=== PATIENT | male | born 1955 | race Caucasian/White ===

== ENCOUNTER 2017-06-01 00:07 | Emergency (ER) | payer OTHER ==
[2017-06-01 00:08] VITALS: BMI 25.8
--- NOTE | 2017-06-01 01:01 | ED PDOC ---
Arrival/HPI - General Chief Complaint: Dizziness/Lightheaded Time Seen by Provider: 06/01/17 00:13 Historian: Patient - History of Present Illness Narrative History of Present Illness (Text): 06/01/17 01:02 A 61 year old male, with no significant past medical history, presents to the emergency department complaining of onset dizziness at home, associated with feeling hot all over body,palpitations , shortness of breath. Patient states he noted blood pressure was elevated. Denies any prior history of hypertension. Patient denies any associated chest pain, leg pain, back pain or any other complaints at this time. Symptom Onset: Sudden Symptom Course: Unchanged Activities at Onset: Rest Context: Home Past Medical History - Provider Review Nursing Documentation Reviewed: Yes - Infectious Disease Hx of Infectious Diseases: None - Tetanus Immunization Tetanus Immunization: >10 years Ago - Past Medical History Past Medical History: No Previous - Cardiac Hx Hypertension: Yes - Psychiatric Hx Depression: No Hx Emotional Abuse: No Hx Physical Abuse: No Hx Substance Use: No - Past Surgical History Past Surgical History: Non-Contributing - Surgical History Other/Comment: hernia repair, meniscal repair - Anesthesia Hx Anesthesia: Yes Hx Anesthesia Reactions: No Hx Malignant Hyperthermia: No - Suicidal Assessment Feels Threatened In Home Enviroment: No Family/Social History - Physician Review Nursing Documentation Reviewed: Yes Family/Social History: No Known Family HX Smoking Status: Never Smoked Hx Alcohol Use: No Hx Substance Use: No Allergies/Home Meds Allergies/Adverse Reactions: Allergies No Known Allergies Allergy (Verified 03/09/13 09:30) Home Medications: Home Meds Medication Instructions Recorded Confirmed No Known Home Med 03/09/13 06/01/17 Review of Systems - Physician Review All systems were reviewed & negative as marked: Yes - Review of Systems Respiratory: SOB Cardiovascular: absent: Chest Pain Musculoskeletal: absent: Back Pain, Other (leg pain) Neurological: Dizziness Physical Exam Vital Signs Reviewed: Yes Vital Signs Temp Pulse Resp BP Pulse Ox 06/01/17 03:15 98.0 F 71 18 168/114 H 99 06/01/17 01:58 72 148/84 06/01/17 00:19 98.7 F 81 16 175/105 H 98 06/01/17 00:08 98.7 F 77 18 155/84 H 100 Temperature: Afebrile Blood Pressure: Hypertensive Pulse: Regular Respiratory Rate: Normal Appearance: Positive for: Well-Appearing, Non-Toxic, Comfortable Pain Distress: None Mental Status: Positive for: Alert and Oriented X 3 - Systems Exam Head: Present: Atraumatic, Normocephalic Pupils: Present: PERRL Extroacular Muscles: Present: EOMI Conjunctiva: Present: Normal Mouth: Present: Moist Mucous Membranes Neck: Present: Normal Range of Motion Respiratory/Chest: Present: Clear to Auscultation, Good Air Exchange. No: Respiratory Distress, Accessory Muscle Use Cardiovascular: Present: Regular Rate and Rhythm, Normal S1, S2. No: Murmurs Abdomen: Present: Normal Bowel Sounds. No: Tenderness, Distention, Peritoneal Signs Back: Present: Normal Inspection Upper Extremity: Present: Normal Inspection. No: Cyanosis, Edema Lower Extremity: Present: Normal Inspection, Other (negative Tj's). No: Edema, CALF TENDERNESS Neurological: Present: GCS=15, CN II-XII Intact, Speech Normal Skin: Present: Warm, Dry, Normal Color. No: Rashes Psychiatric: Present: Alert, Oriented x 3, Normal Insight, Normal Concentration Medical Decision Making ED Course and Treatment: 06/01/17 01:00 Impression: A 61 year old male with dizziness, shortness of breath and elevated blood pressure. Plan: -- EKG -- CT head -- chest xray -- labs -- Catapres -- Reassess and disposition Prior Visits: Notes and results from previous visits were reviewed. Patient was last seen in the emergency department on 03/09/13 for evaluation of right hand suture removal. Progress Notes: EKG: Ordered, reviewed, and independently interpreted the EKG. Rate : 73 BPM Rhythm : NSR Interpretation : No acute changes CT Head Without Intravenous Contrast FINDINGS: Brain: Unremarkable. No hemorrhage. No significant white matter disease. No edema. Ventricles: Unremarkable. No ventriculomegaly. Bones/joints: Unremarkable. No acute fracture. Soft tissues: Unremarkable. Sinuses: Moderate to severe patchy sinus disease. Mastoid air cells: Unremarkable. No mastoid effusion. IMPRESSION: 1. Moderate to severe patchy sinus disease. 2. No evidence of an acute intracranial hemorrhage, midline shift or mass effect is identified. Dictated and Authenticated by: Main Correa MD 06/01/2017 1:48 AM Eastern Time ([place] & [place]) 06/01/17 02:35 Chest xray: No acute process, as read by me. 06/01/17 03:43 Patient was strongly advised for admission to the hospital for possible underlying undiagnosed heart disease. Patient leaving emergency department against medical advice. Leaving Against Medical Advice (AMA): The patient is choosing to leave against medical advice. I have personally explained to the patient that choosing to do so may result in permanent bodily harm or . I have discussed at great length that without further evaluation and monitoring there may be unforeseen circumstances and/or deterioration causing permanent bodily harm or as a result of their choice. The patient is alert, oriented, and shows the mental capacity to make clear decisions regarding the patients health care at this time. The patient continues to wish to leave against medical advice. The patient has been advised that they should return to the emergency room immediately if they change their mind at any time, or if their condition begins to change or worsen in any way. - Lab Interpretations Lab Results: 06/01/17 01:00 06/01/17 01:00 Lab Results 06/01/17 01:00: WBC 7.4, RBC 5.31, Hgb 15.9, Hct 47.2, MCV 88.9, MCH 29.9, MCHC 33.7, RDW 13.7, Plt Count 153, MPV 11.2 H 06/01/17 01:00: Sodium 143, Potassium 4.4, Chloride 104, Carbon Dioxide 30, Anion Gap 13, BUN 16, Creatinine 0.9, Est GFR ( Amer) > 60, Est GFR (Non- Af Amer) > 60, Random Glucose 104, Calcium 9.7, Total Bilirubin 0.5, AST 23, ALT 36, Alkaline Phosphatase 89, Lactate Dehydrogenase 385, Total Creatine Kinase 55, Troponin I < 0.01, Total Protein 7.6, Albumin 4.6, Globulin 3.0, Albumin/Globulin Ratio 1.5 06/01/17 01:00: PT 11.6, INR 1.06, APTT 32.6 I have reviewed the lab results: Yes - RAD Interpretation Radiology Orders: 06/01/17 00:51 HEAD W/O CONTRAST [CT] Stat CHEST PORTABLE [RAD] Stat - EKG Interpretation Interpreted by ED Physician: Yes Type: 12 lead EKG - Medication Orders Current Medication Orders: Discontinued Medications Clonidine HCl (Catapres) 0.2 mg PO STAT STA Stop: 06/01/17 00:57 Last Admin: 06/01/17 01:58 Dose: Not Given Non-Admin Reason: BP Parameters Not Met MAR Pulse and Blood Pressure Document 06/01/17 01:58 AB (Rec: 06/01/17 01:[address] [facility] [id number]) Pulse Pulse Rate (60-90 beats/min) 72 Blood Pressure Blood Pressure (100/60-150/90 mm Hg) 148/84 - Scribe Statement The provider has reviewed the documentation as recorded by the Anish Lee Provider Scribe Attestation: All medical record entries made by the Sujathaibe were at my direction and personally dictated by me. I have reviewed the chart and agree that the record accurately reflects my personal performance of the history, physical exam, medical decision making, and the department course for this patient. I have also personally directed, reviewed, and agree with the discharge instructions and disposition. Disposition/Present on Arrival - Present on Arrival Any Indicators Present on Arrival: No History of DVT/PE: No History of Uncontrolled Diabetes: No Urinary Catheter: No History of Decub. Ulcer: No History Surgical Site Infection Following: None - Disposition Have Diagnosis and Disposition been Completed?: Yes Diagnosis: Hypertension, Palpitations, Dizziness Disposition: AGAINST MEDICAL ADVICE Disposition Time: 03:20 Condition: STABLE Referrals: Ralph Parikh MD [Primary Care Provider] - Follow up with primary Forms: [employer] ([employer])
[2017-06-01 01:19] LABS: HEMATOCRIT 47.2 % (42.0-52.0); MEAN CELL VOLUME 88.9 fl (80.0-105.0); MEAN CORPUSCULAR HEMOGLOBIN 29.9 pg (25.0-35.0); MEAN CORPUSCULAR HGB CONC 33.7 g/dl (31.0-37.0); MEAN PLATELET VOLUME 11.2 fl (7.0-11.0); RED CELL DISTRIBUTION WIDTH 13.7 % (11.5-14.5); WHITE BLOOD COUNT 7.4 10^3/ul (4.5-11.0)
[2017-06-01 01:34] LABS: INR 1.06 (0.93-1.08); PARTIAL THROMBOPLASTIN TIME 32.6 Seconds (25.1-36.5)
[2017-06-01 01:40] LABS: ALB/GLOB RATIO 1.5 (1.1-1.8); ALKALINE PHOSPHATASE 89 U/L (38-126); ALT/SGPT 36 U/L (7-56); AST/SGOT 23 U/L (17-59); BILIRUBIN,TOTAL 0.5 mg/dL (0.2-1.3); BLOOD UREA NITROGEN 16 mg/dL (7-21); CALCIUM 9.7 mg/dL (8.4-10.5); CARBON DIOXIDE 30 mmol/L (21-33); CHLORIDE 104 mmol/L (98-107); GFR AFRICAN-AMERICAN > 60; GLUCOSE,RANDOM 104 mg/dL (70-110); POTASSIUM 4.4 mmol/L (3.6-5.0); SODIUM 143 mmol/L (132-148); TOTAL PROTEIN 7.6 g/dL (5.8-8.3)
--- NOTE | 2017-06-01 01:48 | CT ---
EXAM: CT Head Without Intravenous Contrast CLINICAL HISTORY: 61 years old, male; Signs and symptoms; Dizziness; Additional info: Dizzy TECHNIQUE: Axial computed tomography images of the head/brain without intravenous contrast. All CT scans at this facility use one or more dose reduction techniques, viz.: automated exposure control; ma/kV adjustment per patient size (including targeted exams where dose is matched to indication; i.e. head); or iterative reconstruction technique. 142 images are submitted. COMPARISON: No relevant prior studies available. FINDINGS: Brain: Unremarkable. No hemorrhage. No significant white matter disease. No edema. Ventricles: Unremarkable. No ventriculomegaly. Bones/joints: Unremarkable. No acute fracture. Soft tissues: Unremarkable. Sinuses: Moderate to severe patchy sinus disease. Mastoid air cells: Unremarkable. No mastoid effusion. IMPRESSION: 1. Moderate to severe patchy sinus disease. 2. No evidence of an acute intracranial hemorrhage, midline shift or mass effect is identified.
[2017-06-01 01:51] LABS: TROPONIN I < 0.01 ng/mL
[2017-06-01 03:23] VITALS: BP 168/114; PULSE 71; RESP 18; TEMP 98; O2SAT 99
--- NOTE | 2017-06-01 10:12 | CARD ---
APPROVED REPORT EKG Measurement Heart [id number] <Conclusion> Normal sinus rhythm Mild NSSTW changes
--- NOTE | 2017-06-01 15:01 | RAD ---
HISTORY: fever COMPARISON: None available. TECHNIQUE: Chest, one view. FINDINGS: Examination limited by habitus. LUNGS: No focal consolidation. Please note that chest x-ray has limited sensitivity for the detection of pulmonary masses. PLEURA: No significant pleural effusion identified. No definite pneumothorax . CARDIOVASCULAR: Heart size appears within normal limits. OSSEOUS STRUCTURES: No acute osseous abnormality is detected. VISUALIZED UPPER ABDOMEN: Unremarkable. OTHER FINDINGS: None. IMPRESSION: No focal consolidation, significant pleural effusion, or definite pneumothorax identified.
== END 2017-06-01 03:27 | disposition left against medical advice (07) ==
LOC: ED 00:07
DX: I10 Essential (primary) hypertension (principal); R00.2 Palpitations; R42 Dizziness and giddiness